=== PATIENT | female | born 1990 | race Caucasian/White ===

== ENCOUNTER → 2019-08-06 17:00 | Outpatient (CLI) | payer OTHER, SELFPAY ==
[2019-08-06 17:30] LABS: Absolute Lymphocyte Count 1.78 X10^3/uL (0.83-4.51); Absolute Neutrophil Count 6.5 X10^3/uL (2.0-7.7); Basophil# 0.06 X10^3/uL; Basophil% 0.6 % (0-1); Eosinophil# 0.32 X10^3/uL; Eosinophils% 3.4 % (0-5); Hematocrit 31.6 % (37-47); Hemoglobin 10.3 g/dL (12.0-15.0); Lymphocyte # 1.78 X10^3/ul (4.0); Lymphocyte % 19.1 % (19-41); Mean Corp Hgb Conc 32.6 g/dL (32-36); Mean Corpuscular Hgb 29.6 pg (27.0-32.0); Mean Corpuscular Volume 90.8 fL (81-99); Mean Platelet Vol. 9.1 fl (6.2-12.0); Monocyte# 0.65 X10^3/uL; NRBC Flagged by Analyzer 0 % (0-5); Neutrophil # 6.48 X10^3/uL (2.7-7.7); Neutrophil % 69.6 % (47-70); Platelet Count 278 K/mm3 (150-450); RBC Distribution Width CV 14.3 % (11.6-14.6); RBC Distribution Width SD 47.3 fl (35.1-43.9); Red Blood Count 3.48 M/mm3 (4.2-5.4); White Blood Count 9.3 K/mm3 (4.4-11.0)
[2019-08-06 17:52] LABS: Color, Urine Yellow (Yellow); Glucose, Dipstick Normal (Normal); Ketone-Dipstick Negative (Negative); Leukocyte Esterase-Dipstick 25 /ul (Negative); Nitrite-Dipstick Negative (Negative); Occult Blood-Urine Negative /ul (Negative); Protein-Dipstick Negative (Negative); Urine Bilirubin Dipstick Negative (Negative); Urine Clarity Clear (Clear); Urine Urobilinogen Normal (Normal); Urine pH 6.5 (5.0 - 8.0)
[2019-08-06 18:41] LABS: Thyroid Stim Hormone (TSH) 0.23 uIU/mL (0.358-3.74)
[2019-08-06 19:41] LABS: Chlamydia Trachomatis by PCR Negative (Negative); Neisserai gonorrhoeae by PCR Negative (Negative); Probe Check PASS; Sample Adequacy Control PASS; Specimen Processing Control PASS
[2019-08-07 01:55] LABS: Prenatal RPR NONREACTIVE (NONREACTIVE)
[2019-08-07 09:32] LABS: HIV - WCH Non-Reactive (Nonreactive); Hepatitis B Surface Antigen Non-Reactive (Nonreactive); Hepatitis C Antibody Non-Reactive (Nonreactive); Rubella IgG 12.4 IU/mL
[2019-08-07 17:44] LABS: Free T3 2.3 pg/mL (2.18-3.98); T4 Free Direct 0.97 ng/dL (0.76-1.46)
== END ==
PROVIDERS: Visit Provider Advanced Practice Midwife
DX: Z34.82 Encounter for supervision of other normal pregnancy, second trimester (principal)
CPT/HCPCS: 36415; 81002; 84439; 84443; 84481; 85025; 86703; 86762; 86803; 87340; 87491; 87591

== ENCOUNTER → 2019-08-31 13:22 | Outpatient (CLI) | payer OTHER, SELFPAY ==
[2019-08-31 15:31] LABS: Hematocrit 29.3 % (37-47); Hemoglobin 9.6 g/dL (12.0-15.0); Mean Corp Hgb Conc 32.8 g/dL (32-36); Mean Corpuscular Hgb 29.4 pg (27.0-32.0); Mean Corpuscular Volume 89.6 fL (81-99); Mean Platelet Vol. 9.7 fl (6.2-12.0); Platelet Count 265 K/mm3 (150-450); RBC Distribution Width CV 13.2 % (11.6-14.6); RBC Distribution Width SD 43.7 fl (35.1-43.9); Red Blood Count 3.27 M/mm3 (4.2-5.4); White Blood Count 10.2 K/mm3 (4.4-11.0)
[2019-08-31 15:33] LABS: Glucose Challenge Gest 1H 50g 131 mg/dL (70-140)
== END ==
PROVIDERS: Visit Provider Obstetrics & Gynecology
DX: O30.003 Twin pregnancy, unspecified number of placenta and unspecified number of amniotic sacs, third trimester (principal); Z3A.00 Weeks of gestation of pregnancy not specified
CPT/HCPCS: 36415; 82950; 85027

== ENCOUNTER 2019-10-01 17:35 | Inpatient (IN) | payer SELFPAY, OTHER ==
[2019-10-01 17:22] LABS: ROM Internal Control Test YES-OK TO RESULT pt. (Internal QC); ROM Patient Test POSITIVE (Negative)
--- NOTE | 2019-10-01 18:06 | HP.PCM_ITS ---
History and Physical Date of Admission: 10/01/19 OB HISTORY AND PHYSICAL EXAMINATION History of this : 28 yo female Ab0 with EDC 11/15/2019 by 25 weeks Ultrasound, twin IUP admitted for prolonged observation with SPPROM at 33 4/7 wk EGA. ROM test in ofc positive and pool of fluid noted per vagina. care remarkable for: 1.) Anemic Ferrous sulfate bid recommended. 2.) Too late for AFP, CF testing declined 3.) TWINS, Concordant at 25 wks., and 29 wks., Late transfer of care from formerly [facility] midwives, Normal placentas noted, normal cord insertions at 29 wks. Diamniotic. 4.) Pt's father suddenly in March 2019 (tree branch fell on him), , EPDS = 8 REVIEW OF SYSTEMS: GENERAL - Denies fever, or chills SKIN - Denies skin changes EYES - Denies visual changes EARS - Denies difficulty hearing NOSE - Denies nasal congestion or bleeding MOUTH - Denies sore throat or difficulty swallowing NECK - Denies pain or swelling RESPIRATORY - Denies shortness of breath or wheezing CARDIOVASCULAR - Denies palpitations or chest pain GASTROINTESTINAL - Denies nausea, vomiting, diarrhea, constipation GENITOURINARY - Denies dysuria, frequency of urination, incontinence of urine MUSCULOSKELETAL - Denies joint or muscle pain NEUROLOGICAL - Headaches PSYCHIATRIC - Denies depression or anxiety ENDOCRINE - Denies heat or cold intolerance, weight loss or gain HEMATO-IMMUNOLOGIC - Denies excessive bleeding with cuts PAST HISTORY: Breast/Ovarian/Colon Cancers - Denies Infections - Chicken pox Illnesses - none Accidents - None History of Abnormal PAPS - NO Hospitalizations - None MENSTRUAL HISTORY: LMP Known?- Definite, LMP - 02/08/19 PAST PREGNANCIES: Total Pregnancies - 1; Full Term Pregnancies - 0; Premature - 0; Abortions, Induced - 0; Abortions, Spontaneous - 0; Ectopics - 0; Multiple Births - 0; Living Children - 0 FAMILY HISTORY: Spouse - Heart disorder; SOCIAL HISTORY: Alcohol Use - denies drinking Smoking - Never Diet - balanced Diet Lifestyle - Exercise - regular Seat Belt Use - only in the front seat Employer - homemaker Illicit Drug Use - denies use of street drugs Sexual Activity - [employer] Residence - lives with Place of - [place] Spouse-Sig Other Name - Kongtisha Wall Spouse-Sig Other Occupation - Construction Spouse-Sig Other Phone No - [phone] (Father's number, he can locate) Control - Allergies: No Known Drug Allergies Medications: During - Supplement (s) [No Strength]; ferrous sulfate 325 mg (65 mg iron) tablet Review of Systems: Increased vaginal dischg reported for last two weeks. Non-contributory PHYSICAL EXAMINATION General Appearance: 28 yo female in no acute distress Vital Signs: AF, VSS Lungs: CTA x 2 Breasts: deferred Abdomen: gravid Cervix: 2/75/-3 per CNM check in ofc. Presentation: cephalic / transverse Size: AGA A VTX and 4# 10 oz and B Transverse 4# 1 oz. JOEY wnl on both Movement: present Heart: \Intermittent tracing initially with twins. A reactive. B intermittent. Irregular UCs noted but does not feel uncomfortable. Impression /Plan: Twin Intrauterine . Diamniotic at 33 4/7 wk EGA with premature rupture of membranes. Admit for IV antibiotics ampicillin 2 mg IV q 6 hr x 48 hrs, po Azithromycin in effort to prolong latent phase of labor. Betamethasone 12 mg IM and repeat in 24 hrs. CBC and T and S on admission Continue hospital stay , expectant management with surveillance for s/sx of labor. Plan induction of labor after 34 wk EGA if remains undelivered by 34 wks. Reviewed all plan of care with patient, , Cecily MONTALVO and Addy BHATTI labor nurse. All questions answered. Consulted pediatric hospitalist by phone
[2019-10-01 18:26] VITALS: BMI 27.0
[2019-10-01] MEDS: Betamethasone/Betamethasone 30 MG/5 ML Vial 12 MG IM (19:24)
[2019-10-01] MEDS: Azithromycin 250 MG Tablet 500 MG PO (19:25)
[2019-10-01] MEDS: Lactated Ringers 1,000 ML 999 ML IV (19:52)
--- NOTE | 2019-10-01 19:59 | PCM.PN.BLA ---
Progress Note S: States feeling a few contractions, but mild. Otherwise is feeling well O: Resting in bed comfortably. UC Q2-4minutes palpating mild and at times moderate A: 33w4d NST Read: Baby A baseline 150, + accels, - decels, moderate variability, Category 1. Baby B baseline 140, + accels, - decels, moderate variability, Category 1. UC 2-4 minutes, palpating mild to moderate ROM confirmed P: Spoke with attending Dr. Lees about regular UC. Patient is able to feel some, but not others. Will start a liter bolus of LR, followed by 150mL/hr. To continue with POC for now with close surveillance of and maternal tolerance. If contractions become painful, will offer Tylenol and recheck SVE as needed. If contractions are not felt by mother, to continue surveillance overnight. Spoke with patient of POC and is agreeable. Encouraged to get rest tonight and reminded that she has Ambien and Tylenol as needed.
[2019-10-01 20:26] LABS: Absolute Lymphocyte Count 1.68 X10^3/uL (0.83-4.51); Absolute Neutrophil Count 7.1 X10^3/uL (2.0-7.7); Basophil# 0.05 X10^3/uL; Basophil% 0.5 % (0-1); Eosinophils% 2.1 % (0-5); Hematocrit 33.5 % (37-47); Lymphocyte # 1.68 X10^3/ul (4.0); Lymphocyte % 17.4 % (19-41); Mean Corp Hgb Conc 32.8 g/dL (32-36); Mean Corpuscular Volume 91.3 fL (81-99); Mean Platelet Vol. 9.7 fl (6.2-12.0); Monocyte# 0.57 X10^3/uL; Monocyte% 5.9 % (0-10); NRBC Flagged by Analyzer 0 % (0-5); Neutrophil # 7.13 X10^3/uL (2.7-7.7); Neutrophil % 73.9 % (47-70); Platelet Count 267 K/mm3 (150-450); RBC Distribution Width CV 15.9 % (11.6-14.6); RBC Distribution Width SD 52.5 fl (35.1-43.9); Red Blood Count 3.67 M/mm3 (4.2-5.4); White Blood Count 9.7 K/mm3 (4.4-11.0)
[2019-10-01] MEDS: Lactated Ringers 1,000 ML 150 ML IV (21:22)
[2019-10-01 21:24] LABS: Group B Strep DNA By PCR POSITIVE (Negative); Probe Check PASS
[2019-10-02] MEDS: Lactated Ringers 1,000 ML 150 ML IV (04:20)
[2019-10-02 07:40] VITALS: RESP 16; O2SAT 97
--- NOTE | 2019-10-02 08:30 | PCM.PN.BLA ---
Progress Note HD#2 33 5/7 wk Spont ROM , twin IUP Stable overnight. Able to sleep. [place] some UCs earlier evening on 10/01/19 some scant bloody show +FM AVSS CBC normal, no elevation WBCs last night. Remains afeb EFM: 120-130s avg variability and accels on both babies. Reactive, reassuring NSTs (having q shift, with plan for continuous FM and toco if feeling UCs) UCs irregular CX: deferred 2/2 SPPROM A/P: 33 5/7 wk EGA twin IUP SPPROM Stable overnight AFEB and no inc s/sx ov labor Continue IV Ampicillin 2 gm IV q 6 hr for 48 hrs; Azithromycin 500 mg po daily Betamethasone given yesterday on admission, repeat dose today Plan for induction at 34 wk if remains stable until then. STROKE Vital Signs/Narrative: Vital Signs Resp Pulse Ox 10/02/19 07:40 16 97
[2019-10-02] MEDS: Azithromycin 250 MG Tablet 500 MG PO (09:28)
[2019-10-02] MEDS: Docusate Sodium 100 MG Capsule 200 MG PO (09:28)
[2019-10-02] MEDS: Ferrous Sulfate 325 MG Tablet PO (09:28)
[2019-10-02] MEDS: Prenatal Vits Tablet 1 TABLET PO (14:02)
[2019-10-02] MEDS: Betamethasone/Betamethasone 30 MG/5 ML Vial 12 MG IM (19:38)
[2019-10-02] MEDS: 0.9% Saline Lock 10 ML Syringe IV ×2 (21:20→22:00)
[2019-10-03] MEDS: 0.9% Saline Lock 10 ML Syringe IV ×6 (03:26→22:27)
[2019-10-03] MEDS: Ferrous Sulfate 325 MG Tablet PO (08:14)
--- NOTE | 2019-10-03 09:15 | PCM.PN.BLA ---
Progress Note HD#3 SPPROM at 33 6/7 wk EGA twin IUP Twins 4# 10 oz VTX A 4# 1 oz TRNS B Pt doing well. Appears comfortable. Asking if she is having any UCs. AVSS EFM Twin A, Twin B both reassuring. 120-130s with accels. reactive, no decels. Irregular UCs CX: deferred 2/2 SPPROM A/P: 33 6/7 wk twin IUP with SPPROM S/P Betamethasone two doses, Thurs PM and Fri PM On Ampicillin 2 gm IV q 6 hr for 48 hrs. Last dose IV due at approx 8 pm today then to po meds. Pt remains AFEB and no sx of infection or labor. Prolonged discussion re plan of care. Advised induction to delivery at 34 wks. Advised that risks of infection to her and to her babies outweighs potential benefit of continuation of after 34 wks. ACOG literature reviewed in making this decision. Also discussed with Skyla BURKS , Dr Olivas, who recommends delivery at 34 wk 2/2 PPROM. Advised induction to delivery , vaginal delivery planned, at 34 wks. Pitocin per protocol Twin B transverse. recommended epidural placement and dosing. Advised the second twin may remain transverse. May require version for either VTX delivery or breech extraction. May also require C/S of 2nd twin if twin remains transverse and lower uterine segment contracts or HR nonreassuring. Advised if she choses no epidural, would recommend C section delivery. She does not like needles. Also states she does not like pain. Reviewed R,B,A and placement of epidural. Discussed positioning for epidural placement and importance of good positioning to help anesthesiologist place epidural . Advised that pain due to epidural placement is much less than pain of contractions in labor, pushing out baby, and then potentially having to manipulate to deliver twin B. All questions answered. Better now with decision for epidural. (discussion with patient and spouse approximately 30 mins) PLAN FOR PITOCIN INDUCTION AT 34 WKS. DISCUSSED WITH SKYLA BURKS WHO CONCURS WITH DECISION. Per Skyla BURKS and ACOG Literature delivery recommended.
[2019-10-03] MEDS: Azithromycin 250 MG Tablet 500 MG PO (10:25)
[2019-10-03] MEDS: Prenatal Vits Tablet 1 TABLET PO (10:25)
--- NOTE | 2019-10-04 05:36 | PCM.PN.BLA ---
Progress Note HD#4 34 wk twins PPROM. S/P betamethasone GBS positive. Remains stable overnight, no S/sx of infection or PTL Orders placed for planned induction of labor today. Pitocin Ampicillin 2 gm IV q 6 hr to continue for GBS positive screen repeat CBC and update T&S
[2019-10-04] MEDS: Lactated Ringers 1,000 ML 50 ML IV (07:55)
[2019-10-04 08:06] LABS: Absolute Lymphocyte Count 1.29 X10^3/uL (0.83-4.51); Absolute Neutrophil Count 7.8 X10^3/uL (2.0-7.7); Basophil# 0.01 X10^3/uL; Basophil% 0.1 % (0-1); Eosinophil# 0.05 X10^3/uL; Eosinophils% 0.5 % (0-5); Hematocrit 31.8 % (37-47); Hemoglobin 10.3 g/dL (12.0-15.0); Lymphocyte # 1.29 X10^3/ul (4.0); Mean Corp Hgb Conc 32.4 g/dL (32-36); Mean Corpuscular Hgb 30.1 pg (27.0-32.0); Mean Platelet Vol. 9.2 fl (6.2-12.0); Monocyte# 0.64 X10^3/uL; Monocyte% 6.5 % (0-10); NRBC Flagged by Analyzer 0 % (0-5); Neutrophil # 7.82 X10^3/uL (2.7-7.7); Neutrophil % 79.1 % (47-70); Platelet Count 239 K/mm3 (150-450); RBC Distribution Width CV 16.4 % (11.6-14.6); RBC Distribution Width SD 55.4 fl (35.1-43.9); Red Blood Count 3.42 M/mm3 (4.2-5.4); White Blood Count 9.9 K/mm3 (4.4-11.0)
[2019-10-04] MEDS: Oxytocin 30 units/NS 500 ml 30 UNITS/500 ML IV.SOLN IV (08:12)
[2019-10-04] MEDS: 0.9% Saline Lock 10 ML Syringe IV (08:13)
[2019-10-04] MEDS: Lactated Ringers 500 ML 999 ML IV (12:44)
[2019-10-04] MEDS: fentaNYL-bupivacaine (epidural) 100 ML BAG EPIDURAL (13:50)
--- NOTE | 2019-10-04 14:32 | PCM.PN.BLA ---
Progress Note S: Legs feeling numb after epidural, but feeling some pressure with contractions O: VSS, sitting in bed post-epidural smiling A: 34.0 week IOL for PPROM day 4 on antibiotics SVE /0 anterior UC 2-3 minutes with Pitocin on 14 NST baby A baseline 150, + accels, - decels, moderate variability, category I baby B baseline 135, + accels, - decels, moderate variability, category I Epidural in place AROM of tight forebag at baby A's head, clear fluid P: Continue IOL with pitocin Anticipate vaginal delivery of baby A and baby B in surgical suite with double set up
[2019-10-04] MEDS: Sodium Citrate/Citric Acid 30 ML UDC PO (15:52)
[2019-10-04] MEDS: Oxytocin 30 units/NS 500 ml 30 UNITS/500 ML IV.SOLN 334 UNITS IV (16:19)
[2019-10-04] MEDS: Methylergonovine 0.2 MG/ML Ampul IM (16:30)
--- NOTE | 2019-10-04 16:37 | PCM.OPRPT ---
Vaginal Delivery Maternal Presentation: Spontaneous Rupture of Membranes - Prolonged Spont ROM Presents at 33 4/7 wk with SPPROM. Twin IUP Method of Induction: Pitocin Medical Reason for Induction: - - SPPROM , 34 wk induction. MFM recommended, ACOG literature recommended Amniotic Membrane Rupture Type: Spontaneous at home Rupture of Membrane time: 10/01/19 ? Amniotic Fluid Description: Clear Final HOLLY: 11/15/19 Final HOLLY Source: US <20 weeks Gestational age: 34 Weeks and 0 Days doctor who attended delivery (if requested by OB): Sallie Benson Date of Procedure: 10/04/19 Pre-Operative Diagnosis: 34 wk SPPROM, Twin IUP VTX TRNS Post-Operative Diagnosis: Same, Induction of labor to twins VTX Footling breech extractoin Surgery/ Procedure Performed: Spontaneous Vaginal Delivery Anesthesiologist: Ivory Larkin MD Type of Anesthesia: Epidural Description of Procedure: of twin A by Cecily Chatterjee CNM. Head delivered OA. OP and nares bulb suctioned on perineum. Loose nuchal cord noted Shoulders delivered easily through cord. Cord clamped times two and cut to nurse awaiting delivery, and to Dr Benson in attendance for 34 wk twin induction Sono twin B. Footling breech extraction after AROM. Clear fluid. Feet brought through vagina. Infant delivered up to shoulders nuchal arms reduced by rotation of infant. Vtx delivered by maintaining nuchal flexion. OP and nares bulb suctioned. Cord clamped times two and cut and to RN awaiting delivery , then to Dr Benson present for . PP Exam: no lacerations noted. Abrasions only. No repair required. routine venous and arterial cord blood collected on both placentas. Placentas then delivered by spont expulsion, expression. Continued bleeding noted, intermittent atony responded well to bimanual massage, IV Pitocin but continued bleeding. methergine 0.2 mg IM R thigh given times one. Banjo curettage performed and tissue c/w placenta/membranes returned. Excellent hemostasis noted then. Presentation: Vertex Placental Delivery Description: Spontaneous, Expressed Placenta Disposition: Routine to Lab Cord Vessel Description: 3 Vessels Nuchal Cord Compression: Without compression Cord Gases drawn per routine: ABG, VBG Cord Entanglement: Around neck x 1, loose Drain: [place] to straight drain Estimated Blood Loss: 450 A gender: Female (1 minute): 8 - 4# 7 oz (5 minute): 9 Baby B - Information Amniotic Membrane Rupture Type: Artificial Presentation: Footling Breech - Operative Information Cord Entanglement: None Cord Vessel Description: 3 Vessels Infant B gender: Female
--- NOTE | 2019-10-04 16:56 | DCINST_ITS ---
Discharge Diet: No Restrictions Discharge Activity: May Shower, May Take a Tub Bath Return to work on:: 11/16/19 May resume sexual activity in: 4-6 weeks Additional Activity Instructions:: Nothing in the vagina for 4-6 weeks. You may return to work/school in 6 weeks. Additional Instructions: If you experience any of the following, contact your healthcare provider. * Bleeding that soaks a pad every hour for 2 hours * Fever 100.4 or higher * Unrelieved abdominal pain * Problems urinating (including inability to urinate or burning while urinating). * Visual changes * Severe headache * Flu-like symptoms * Pain or redness in one of both of your breasts * Pain, warmth, tenderness or swelling in your legs, especially the calf area * Frequent nausea and vomiting * Symptoms of depression or anxiety If you experience any of the following, call 911 or go to the nearest Emergency Room. * Chest pain * Problems breathing * Seizure activity * Partial or complete paralysis of a body part, slurred speech, weakness or drooping of the face, or a sudden inability to walk or hold your balance Allergies/Adverse Reactions: Allergies No Known Allergies Allergy (Verified 10/01/19 18:24) Medications to take at Discharge Vits [Prenatabs FA ] 1 tab PO DAILY 10/01/19 Please Follow Up With: Cecily Chatterjee CNM When: Call to make an appointment with your wildlife officer in 2 wks and in 6 weeks. Test Results: Test results from this visit will be discussed in further detail at your follow- up appointment, if applicable. Proposed Discharge Date: 10/06/19
--- NOTE | 2019-10-04 16:56 | PCM.DCVAG ---
Discharge Diet: No Restrictions Discharge Activity: May Shower, May Take a Tub Bath Return to work on:: 11/16/19 May resume sexual activity in: 4-6 weeks Additional Activity Instructions:: Nothing in the vagina for 4-6 weeks. You may return to work/school in 6 weeks. Additional Instructions: If you experience any of the following, contact your healthcare provider. Bleeding that soaks a pad every hour for 2 hours Fever 100.4 or higher Unrelieved abdominal pain Problems urinating (including inability to urinate or burning while urinating). Visual changes Severe headache Flu-like symptoms Pain or redness in one of both of your breasts Pain, warmth, tenderness or swelling in your legs, especially the calf area Frequent nausea and vomiting Symptoms of depression or anxiety If you experience any of the following, call 911 or go to the nearest Emergency Room. Chest pain Problems breathing Seizure activity Partial or complete paralysis of a body part, slurred speech, weakness or drooping of the face, or a sudden inability to walk or hold your balance Allergies/Adverse Reactions: Allergies No Known Allergies Allergy (Verified 10/01/19 18:24) Medications to take at Discharge Vits [Prenatabs FA ] 1 tab PO DAILY 10/01/19 Please Follow Up With: Cecily Chatterjee CNM When: Call to make an appointment with your bankruptcy processor in 2 wks and in 6 weeks. Test Results: Test results from this visit will be discussed in further detail at your follow-up appointment, if applicable. Proposed Discharge Date: 10/06/19
[2019-10-04] MEDS: Ondansetron 4 MG/2 ML Vial IV (17:07)
[2019-10-04] MEDS: Ibuprofen 600 MG Tablet PO (18:09)
[2019-10-04 20:03] VITALS: BP 103/61; PULSE 71; RESP 14; TEMP 36.7
--- NOTE | 2019-10-04 22:09 | NURSING ---
Educated patient on how to pump and frequency of pumping. Swabs given and explained. Patient verbalizes understanding of pumping every 3 hours. Will continue to assist mother with pumping throughout the night.
[2019-10-05 01:19] VITALS: BP 99/56; PULSE 66; RESP 16; TEMP 36.5
[2019-10-05 04:52] VITALS: BP 98/59; PULSE 61; RESP 12; TEMP 36.4
[2019-10-05] MEDS: Dibucaine 30 GM Tube 1 APPLIC TOPICAL (05:00)
[2019-10-05 08:49] VITALS: BP 113/71; PULSE 70; RESP 16; TEMP 36.4
[2019-10-05] MEDS: Ibuprofen 600 MG Tablet PO (09:06)
[2019-10-05] MEDS: Senna/Docusate Sodium 1 Tablet PO (09:06)
--- NOTE | 2019-10-05 09:07 | PCM.PN.OB ---
Subjective: Feeling well with slight hemorrhoid pain, 3/10. Took Motrin, ice, witch oliva and ointment which is helping. Started pumping and getting a tiny amount from left breast. States she is overjoyed. Objective: Sitting in bed on the phone upon arrival smiling. - Physical Exam Vitals/I&O's: Vital Signs Temp Pulse Resp BP Pulse Ox 97.6 F L 70 16 113/71 97 10/05/19 08:49 10/05/19 08:49 10/05/19 08:49 10/05/19 08:49 10/02/19 07:40 Oxygen Delivery Method Room Air Weight: 64.864 kg Body Mass Index (BMI) 27.0 Intake and Output for Last 24 Hours 10/03/19 10/04/19 10/05/19 23:59 23:59 23:59 Intake Total 300 / 300 2299.36 / 2299.36 480 / 480 Output Total 100 / 100 1050 / 1050 Balance 300 / 300 2199.36 / 2199.36 -570 / -570 General: Alert, Oriented x3, Cooperative HEENT: Atraumatic, PERRLA, EOMI, Normocephalic Neck: Supple, No JVD, Negative Carotid Bruits Lungs: Clear to auscultation, Normal air movement Cardiovascular: Regular rate, No murmurs Abdomen: Bowel Sounds Present, Soft, Non Tender, Passing Flatus, - - Fundus u/1 Extremities: No edema, Capillary Refill Less than 3 Seconds Skin: No rashes, No breakdown, - - hemorrhoids Musculoskeletal: No Tenderness to Palpation of Joints or Extremities Neurological: Cranial nerves II-XII grossly intact Psych/Mental Status: Normal Affect, Appropriate Laboratory Results 10/04/19 07:50: Blood Type A POSITIVE, Antibody Screen NEGATIVE Current Medications Acetaminophen (Tylenol) 1,000 mg PO Q8H PRN PRN PRN Reason: Pain Score 1-3/10 Bisacodyl (Dulcolax) 10 mg RECTAL UD PRN PRN Reason: If no BM Dibucaine (Dibucaine) 1 applic TOPICAL TID PRN PRN; Protocol PRN Reason: Discomfort Last Admin: 10/05/19 05:00 Dose: 1 applic Documented by: Hydrocortisone (Hytone) 1 applic TOPICAL TID PRN PRN; Protocol PRN Reason: Discomfort Ibuprofen (Motrin) 600 mg PO Q6H PRN PRN PRN Reason: Pain Score 1-3/10 Last Admin: 10/05/19 09:06 Dose: 600 mg Documented by: Methylergonovine Maleate (Methergine) 0.2 mg IM X1 PRN PRN Reason: Excess bleeding/uterine atony Last Admin: 10/04/19 16:30 Dose: 0.2 mg Documented by: Ondansetron HCl (Zofran) 4 mg IV Q4H PRN PRN PRN Reason: Nausea Multivit/Folic Acid/Iron (Prenatabs Fa) 1 tablet PO DAILY@1200 IRIS Senna/Docusate Sodium (Senokot-S, Inés-Colace) 1 - 2 tablet PO DAILY PRN PRN PRN Reason: Constipation Last Admin: 10/05/19 09:06 Dose: 2 tablet Documented by: Simethicone (Mylicon) 80 mg PO PCHS PRN PRN Reason: Indigestion/Stomach pain Sodium Chloride () 5 - 15 ml IV UD PRN PRN Reason: SALINE FLUSH Medical Necessity - Tobacco Use Smoking Status: Never smoker Assessment/Plan A: day 1 from vaginal twin delivery hemorrhoids, fundus u/1, VSS pumping breastmilk P: Continue routine PP care with hemorrhoid and pain medication to come teach patient about hands on pumping To switch to hotel status after 48 hours.
[2019-10-05 11:58] VITALS: BP 111/69; PULSE 82; RESP 16; TEMP 36.3; O2SAT 99
[2019-10-05 16:35] VITALS: BP 102/63; PULSE 77; RESP 16; TEMP 36.8; O2SAT 97
[2019-10-05] MEDS: Prenatal Vits Tablet 1 TABLET PO (17:10)
[2019-10-05 19:40] VITALS: BP 109/68; PULSE 90; RESP 16; TEMP 36.6; O2SAT 98
[2019-10-06 02:05] VITALS: BP 105/64; PULSE 64; RESP 18; TEMP 36.6; O2SAT 97
[2019-10-06 08:00] VITALS: BP 115/72; PULSE 85; RESP 18; TEMP 36.3; O2SAT 100
--- NOTE | 2019-10-06 09:29 | PCM.DC.SUM ---
Discharge Date and Diagnosis Date of Admission: 10/01/19 Date of Discharge: 10/06/19 Hospital Course and Treatment Summary of Care Provided: The patient is a 28 year old F [] Subjective: Mild cramping when pumping, but otherwise feeling well. Hemorrhoids are much better and not painful. Daughters are both latching and doing great. Objective: VSS. Fundus u/3. Light rubra lochia continues. both daughters at breast and pumping. Stable day #2. - Physical Exam Vitals/I&O's: Vital Signs Temp Pulse Resp BP Pulse Ox 97.3 F L 85 18 115/72 100 10/06/19 08:00 10/06/19 08:00 10/06/19 08:00 10/06/19 08:00 10/06/19 08:00 Oxygen Delivery Method Room Air Weight: 64.864 kg Body Mass Index (BMI) 27.0 Intake and Output for Last 24 Hours 10/04/19 10/05/19 10/06/19 23:59 23:59 23:59 Intake Total 2299.36 / 2299.36 480 / 480 Output Total 100 / 100 1050 / 1050 Balance 2199.36 / 2199.36 -570 / -570 General: Alert, Oriented x3, Cooperative HEENT: Atraumatic, PERRLA, EOMI, Normocephalic Neck: Supple, No JVD, Negative Carotid Bruits Lungs: Clear to auscultation, Normal air movement Cardiovascular: Regular rate, No murmurs Abdomen: Bowel Sounds Present, Soft, Non Tender, Passing Flatus, - - fundus u/3 Extremities: No edema, Capillary Refill Less than 3 Seconds Skin: No rashes, No breakdown, - - external hemorrhoids Musculoskeletal: No Tenderness to Palpation of Joints or Extremities Neurological: Cranial nerves II-XII grossly intact Psych/Mental Status: Normal Affect, Appropriate Current Medications Acetaminophen (Tylenol) 1,000 mg PO Q8H PRN PRN PRN Reason: Pain Score 1-3/10 Bisacodyl (Dulcolax) 10 mg RECTAL UD PRN PRN Reason: If no BM Dibucaine (Dibucaine) 1 applic TOPICAL TID PRN PRN; Protocol PRN Reason: Discomfort Last Admin: 10/05/19 05:00 Dose: 1 applic Documented by: Hydrocortisone (Hytone) 1 applic TOPICAL TID PRN PRN; Protocol PRN Reason: Discomfort Ibuprofen (Motrin) 600 mg PO Q6H PRN PRN PRN Reason: Pain Score 1-3/10 Last Admin: 10/05/19 09:06 Dose: 600 mg Documented by: Methylergonovine Maleate (Methergine) 0.2 mg IM X1 PRN PRN Reason: Excess bleeding/uterine atony Last Admin: 10/04/19 16:30 Dose: 0.2 mg Documented by: Ondansetron HCl (Zofran) 4 mg IV Q4H PRN PRN PRN Reason: Nausea Multivit/Folic Acid/Iron (Prenatabs Fa) 1 tablet PO DAILY@1200 IRIS Last Admin: 10/05/19 17:10 Dose: 1 tablet Documented by: Senna/Docusate Sodium (Senokot-S, Inés-Colace) 1 - 2 tablet PO DAILY PRN PRN PRN Reason: Constipation Last Admin: 10/05/19 09:06 Dose: 2 tablet Documented by: Simethicone (Mylicon) 80 mg PO PCHS PRN PRN Reason: Indigestion/Stomach pain Sodium Chloride () 5 - 15 ml IV UD PRN PRN Reason: SALINE FLUSH Discharge Diet: No Restrictions Discharge Activity: May Shower, May Take a Tub Bath Return to work on:: 11/16/19 May resume sexual activity in: 4-6 weeks Additional Activity Instructions:: Nothing in the vagina for 4-6 weeks. You may return to work/school in 6 weeks. Home Medications: Medications to take at Discharge Vits [Prenatabs FA ] 1 tab PO DAILY 10/01/19 Please Follow Up With: Cecily Chatterjee CNM When: 2 weeks Disposition: Home - to stay in hotel status Minutes spent on discharge:: 30 Patient Condition:: Good Medical Necessity - Tobacco Use Smoking Status: Never smoker Meaningful Use Info Meaningful Use Diagnoses (Choose all that apply): None applicable
--- NOTE | 2019-10-06 14:00 | CASEMGMT ---
Social Work Assessment ?Labor and Delivery Unit ? Date of Referral:?10.04.2019 Time of Referral:?1800 Date of Intervention:?10.06.2019 Time of Intervention:?4464-6523 ? Referred by:?social work identification. ? Reason for Referral:?34 week twin delivery with history of infertility; babies admitted to the [facility]; maternal history of depression and anxiety. ? History obtained from:?medical records, and patient/mother of babies (MOB) Eileen Wall. ??Educated MOB that this advertising writer is the assigned social media assistant for [facility] labor and delivery unit, and for continuity of care of families in the [facility] this advertising writer is also assigned to the social work needs of the [facility] ? Household composition:?MOB and father of baby (FOB) Kong Wall. ??MOB denies safety concerns in the home. ? ? Patient's parent/guardian status:?MOB and FOB are both age 27 and are , and are part of the [facility] community. ?Kareen and her twin sister Lore (Baby B) are the first children for MOB and FOB. ?? ? Medical History:?MOB is G1, P0 to 2 after delivering twins. ?? care started with the [facility] at 10 weeks, transferring care to [facility] at 26 weeks.??Baby A/Kareen was born weighing 2000 grams, Apgars 8 and 9 at 1 and 5 minutes of life. ?Baby B/Lore was born weighing 1780 grams with Apgars of 7 and 9. ?? ? Developmental Concerns:?34 week premature delivery.?? ? Educational Status:??MOB and FOB have 8th grade education, as is the norm in the [facility] community. ?MOB is able to read, write, and understand what is read. ? ? Health Care Coverage:?Self Pay - [facility] [employer] [facility]. ? Financial Status:?FOB works in construction. ? Supplies: ?MOB reports to have cribs. ?MOB reports her sister is gathering 2 car seats and will make sure are within the expiration date. ?MOB reports will most likely be getting new car seats. ?MOB's family is also working on clothes. ?MOB is planning to provide breast milk to babies. ? ? Childcare/Caregiver(s):?MOB and then help from FOB.? ? Transportation:?Horse and buggy or hired dedicated driver. ? Programs/Agencies Involved:?None, and no interest in [facility] at this point. ??Uncertain as about [facility]. ? ? Behavioral Health Issues:?MOB with history of depression and anxiety. ?Nisswa score was an 8 on 08.12.2019. ?MOB reports mostly situational and reports her father suddenly in March of 2019 after a tree branch fell on him. ?MOB denies any counseling, medications, history of SI or HI. ??MOB denies any substance use issues for self or FOB. ?? ? Family Stressors:?MOB's father in March of 2019. ???Infertility issues as MOB and FOB tried for for 6 years. ?Babies admitted to the [facility]. ? ? Support Systems:?MOB reports FOB is a good support, and helpful. ?Denies any abuse in this relationship. ??MOB reports will have helpers after discharge in the way of MOB's mother, sister, FOB's mother and a sister. ?? ? Assessment Met with MOB in her room on the labor and delivery unit. ?Introduced to?self and role. ?MOB pleasant and agreeable to talk to social media assistant. ?MOB reports to be happy to have the babies, and while this is stressful also looks at the [facility] stay as something to help the babies. ??MOB denies mood or anxiety issues at this time but did listen to social work education on said topic. ??MOB agreeable to have social media assistant check back at a later time on how things are going and provide resource packets. ???MOB denies any needs or concerns at this time, reports to have adequate support from family.? Plan MOB being discharged today. Social work remains available to family while babies admitted to the [facility]. No other services requested or indicated for MOB who will be provided with resources lists and depression packets before babies are discharged from the [facility]. ? BRIGHT Jiang ?
[2019-10-06 17:13] VITALS: BP 113/64; PULSE 97; RESP 18; TEMP 36.7; O2SAT 97
[2019-10-06] MEDS: Prenatal Vits Tablet 1 TABLET PO (17:18)
== END 2019-10-06 20:25 | disposition home or self-care (01) | DRG 805 ==
LOC: WP 17:42
PROVIDERS: Obstetrics & Gynecology; Admitting Provider Obstetrics & Gynecology; Visit Provider Obstetrics & Gynecology
DX: O42.113 Preterm premature rupture of membranes, onset of labor more than 24 hours following rupture, third trimester (principal); O60.14X1 Preterm labor third trimester with preterm delivery third trimester, fetus 1; Z37.2 Twins, both liveborn; O60.14X2 Preterm labor third trimester with preterm delivery third trimester, fetus 2; O87.2 Hemorrhoids in the puerperium; O32.8XX2 Maternal care for other malpresentation of fetus, fetus 2; O30.043 Twin pregnancy, dichorionic/diamniotic, third trimester; O69.81X1 Labor and delivery complicated by cord around neck, without compression, fetus 1; O71.89 Other specified obstetric trauma; O62.2 Other uterine inertia; O99.824 Streptococcus B carrier state complicating childbirth; Z3A.34 34 weeks gestation of pregnancy
CPT/HCPCS: 59025; 59050; 76815; 84112; 85025; 86850; 86900; 86901; 87653; 99218; 99251; J7120; A4216; G0378; G0463; J0702; J2405